=== PATIENT | female | born 2000 | race Hispanic/Latino ===

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

== ENCOUNTER 2022-12-06 22:42 | Emergency (ER) | payer SELFPAY ==
[~2022-12-06] VITALS: Ht 162.6 cm; Wt 145.4 kg
[~2022-12-06 22:42] MED LIST changes: +CYTOTEC200 MCG PO; +DOXYCYCL HYC100 M4 PO; +IRON325 M1 PO; +LORTAB 5/3255 MG PO
[2022-12-06 23:58] VITALS: BP 148/105
[2022-12-07] VITALS: BP 144/81
[2022-12-07 00:15] VITALS: BP 158/109
[2022-12-07] MEDS ORDERED: LORTAB 1010 MG PO (00:24)
[2022-12-07] MEDS ORDERED: AMOX/K CLAV875 M1 PO (00:24)
[2022-12-07] MEDS ORDERED: FLOXIN OTIC0.3 % AD (00:24)
[2022-12-07 00:29] VITALS: BP 169/108
[2022-12-07 00:30] VITALS: BP 159/107
== END 2022-12-07 00:37 | disposition home or self-care (01) | DRG 153 ==
LOC: ED 22:42
DX: H66.91 Otitis media, unspecified, right ear (principal)